=== PATIENT | male | born 2000 | race American Indian/Alaskan Native ===

== ENCOUNTER 2021-02-13 02:55 | Emergency (ER) | payer OTHER ==
[2021-02-13 03:37] VITALS: BP 143/86
[2021-02-13] MEDS ORDERED: KETOROLAC 30 MG/1 ML INJ IV STA (05:38)
[2021-02-13] MEDS ORDERED: ONDANSETRON 4 MG/2 ML INJ IV STA (05:38)
[2021-02-13] MEDS ORDERED: MORPHINE 4 MG/1 ML INJ IM STA (05:38)
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
== END 2021-02-13 08:33 | disposition home or self-care (01) ==
LOC: ED 02:55
DX: S92.241A Displaced fracture of medial cuneiform of right foot, initial encounter for closed fracture (principal); J45.909 Unspecified asthma, uncomplicated; Z90.49 Acquired absence of other specified parts of digestive tract; Z79.899 Other long term (current) drug therapy; V49.49XA Driver injured in collision with other motor vehicles in traffic accident, initial encounter; Y92.410 Unspecified street and highway as the place of occurrence of the external cause; Y93.89 Activity, other specified; Y99.8 Other external cause status
CPT/HCPCS: 29515; 73130; 73552; 73590; 73630; 96372; 96374; 96375; 99284; J1885; J2270; J2405